=== PATIENT | male | born 1955 | race Caucasian/White ===

== ENCOUNTER → 2016-03-15 | Day surgery (SDC) | payer OTHER ==
[~2016-03-15] VITALS: Ht 177.8 cm; Wt 84.8 kg
[~2016-03-15] MED LIST: HYDROCODONE BIT1 T11 PO; NAPROSYN500 MG PO; PRILOSEC20 MG
--- NOTE | ~2016-03-15 | O ---
[place], [place] OPERATIVE NOTE NAME: SHILO CARRILLO UNIT #: [id number] ROOM: DOCTOR: ELLEN BRIAN MD BIRTHDATE: [birth year] DOS: 03/15/2016 INDICATIONS: The patient is a 60-year-old patient who has presented with periodic blood in the stool, undergoing investigation. ALLERGIES: To no known medication. FAMILY HISTORY: Noncontributory. PAST SURGICAL HISTORY: Rotator cuff, hiatal hernia, meniscus repair. PAST MEDICAL HISTORY: Reflux, on omeprazole. SOCIAL HISTORY: Nonsmoker, social alcohol consumer. PROCEDURE: Todays' procedure part of investigation is colonoscopy. PREMEDICATION: Versed and Diprivan. SCOPE: Olympus forward-viewing colonoscope 10L video. REPORT: After putting the patient in the left lateral position and after application of lubricant to rectal pouch and digital examination, scope was introduced. Thereafter, under direct visualization, I advanced through the length of colon without difficulty. Base of the cecum explored, appendiceal orifice identified, and ileocecal valve was defined. Scattered diverticulosis in the right colon, transverse and descending colon are photographed. GI reflection of the scope in the rectum reveals minimal hemorrhoid, otherwise no acute pathology. The patient extubated, tolerated procedure well. IMPRESSION: Scattered diverticulosis in right transverse and descending colon, very small hemorrhoid. PLAN AND DISCUSSION: Preparation H Suppositories p.r.n. with suffice management, high fiber diet. Activity ad chris. Next colonoscopy in 10 years unless there are symptoms in which case one may be scheduled earlier. Followup routinely with family doctor in office and p.r.n. visit with us in [facility]. [place], [place] OPERATIVE NOTE NAME: SHILO CARRILLO UNIT #: [id number] ROOM: DOCTOR: ELLEN BRIAN MD BIRTHDATE: [birth year] ELLEN BRIAN MD CM:OPRECORD:OPERATIVE NOTE [id number] MD ELLEN BOLAND MD 04/10/16 [id number] interface
[2016-03-15 10:48] VITALS: BP 125/87
[2016-03-15 12:34] VITALS: BP 100/67
[2016-03-15 12:49] VITALS: BP 113/74
[2016-03-15 13:04] VITALS: BP 120/81
== END | disposition home or self-care (01) ==
LOC: SDC 03-11 11:00
DX: K57.30 Diverticulosis of large intestine without perforation or abscess without bleeding (principal); K64.9 Unspecified hemorrhoids; K92.1 Melena; K21.9 Gastro-esophageal reflux disease without esophagitis; Z90.49 Acquired absence of other specified parts of digestive tract; Z82.49 Family history of ischemic heart disease and other diseases of the circulatory system

== ENCOUNTER → 2020-01-31 | Outpatient (CLI) | payer OTHER | END | disposition home or self-care (01) | LOC: COVID19 11:51 | PROVIDERS: ATTEND Nurse Practitioner Family | DX: U07.1 COVID-19 (principal) ==

== ENCOUNTER → 2021-05-30 | Day surgery (SDC) | payer MEDICARE ==
[~2021-05-30] VITALS: Ht 177.8 cm; Wt 83.5 kg
[~2021-05-30] MED LIST changes: +NEXIUM40 MG PO; +OCUFLOX 0.3% 5 M5 ML OPH; +PRED FORTE5 ML OP
[2021-05-30 11:30] VITALS: BP 137/84
[2021-05-30 13:20] VITALS: BP 135/87
[2021-05-30 13:35] VITALS: BP 121/82
[2021-05-30 13:50] VITALS: BP 130/83
== END | disposition home or self-care (01) ==
LOC: SDC 05-25 14:00
PROVIDERS: ATTEND Ophthalmology
DX: H25.811 Combined forms of age-related cataract, right eye (principal); K21.9 Gastro-esophageal reflux disease without esophagitis; Z79.899 Other long term (current) drug therapy

== ENCOUNTER → 2024-04-19 | Outpatient (CLI) | payer MEDICARE | END | disposition home or self-care (01) | LOC: US 08:00 | PROVIDERS: ATTEND Urology | DX: N28.1 Cyst of kidney, acquired (principal); N50.3 Cyst of epididymis ==

== ENCOUNTER 2024-08-01 06:29 | Emergency (ER) | payer MEDICARE ==
[~2024-08-01] VITALS: Ht 177.8 cm; Wt 82.1 kg
[2024-08-01] MEDS ORDERED: SEPTDS PO (07:04)
[2024-08-01] MEDS ORDERED: PREDNISONE20 M1 PO (07:04)
[2024-08-01] MEDS ORDERED: Dexamethasone Sodium Phospha 20 MG/5 ML VIAL IM ONE (07:05)
== END 2024-08-01 07:21 | disposition home or self-care (01) ==
LOC: ED 06:29
DX: L25.9 Unspecified contact dermatitis, unspecified cause (principal); L03.113 Cellulitis of right upper limb; L03.114 Cellulitis of left upper limb; Z79.899 Other long term (current) drug therapy; Z90.49 Acquired absence of other specified parts of digestive tract; Z98.890 Other specified postprocedural states

== ENCOUNTER → 2024-08-02 | Outpatient (CLI) | payer MEDICARE ==
[~2024-08-02] MED LIST changes: +PREDNISONE20 M1 PO; +SEPTDS PO
== END | disposition home or self-care (01) ==
LOC: CARD 08:49
DX: Z01.810 Encounter for preprocedural cardiovascular examination (principal); I45.10 Unspecified right bundle-branch block